=== PATIENT | female | born 1995 | race Caucasian/White ===

== ENCOUNTER → 2018-08-19 | Emergency (ER) | payer OTHER ==
[~2018-08-19] VITALS: Ht 162.6 cm; Wt 74.8 kg
[~2018-08-19] MED LIST: BIRTH CONTROL; CLEOCIN HCL150 MG PO; HYDROCODONE-AP1 EAC6 PO; LIDOCAINE VISC100 ML SWISH&SPIT; MACROBID 100 M100 M1; NORCO 5-325 TA1 EACH PO; PRENATAL; ROBAXIN500 MG PO; TRAMADOL 50 MG50 MG PO
[2018-08-19 16:58] VITALS: BP 133/89
== END ==
LOC: M.ERS 16:54
DX: K02.9 Dental caries, unspecified (principal); Z88.1 Allergy status to other antibiotic agents; Z88.8 Allergy status to other drugs, medicaments and biological substances